=== PATIENT | male | born 1965 | race Caucasian/White ===

== ENCOUNTER 2017-02-05 15:21 | Emergency (ER) | payer BC ==
[2017-02-05] MEDS ORDERED: Sodium Chloride 0.9% 1,000 ML IV ONE (15:25)
[2017-02-05] MEDS ORDERED: Sodium Chloride 0.9% 10 ML Syringe FLUSH PRN (15:25)
[2017-02-05] MEDS ORDERED: Sodium Chloride 0.9% 2.5 ML Syringe FLUSH PRN (15:25)
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
--- NOTE | 2017-02-05 16:02 | CT ---
EXAMINATION: Non contrast CT head. Coronal and sagittal reformats. HISTORY: Pain FINDINGS: No evidence of intra axial hemorrhage, mass, midline shift, hydrocephalus or edema. There is enceph alomalacia in the right frontal lobe anteriorly along the right cerebral convexity. There is an unde rlying mild prominence of the extra-axial spaces. No hypoattenuation changes in the major vascular territories to suggest acute infarct. No abnormal intracranial calcifications are detected. No evidence of substantial vascular calcifications. Mild mucosal thickening within the maxillary sinuses and ethmoid air cells. The orbits and globes ar e symmetric. Pituitary fossa appears unremarkable. Calvarium is intact. No evidence of skull fracture. IMPRESSION: 1. 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 2. No definite acute intracranial abnormality.
--- NOTE | 2017-02-05 16:07 | CR ---
EXAMINATION: Portable chest radiograph. HISTORY: Shortness of breath. FINDINGS: The trachea is midline. The cardiomediastinal silhouette is within normal limits. Mild diffuse inter stitial prominence bilaterally, left greater than right. No focal consolidation, pleural effusion, o r pneumothorax. Osseous structures appear unremarkable. IMPRESSION: Mildly increased interstitial prominence bilaterally, the etiology is uncertain, this could be a chr onic finding.
[2017-02-05 16:25] LABS: CHLORIDE,CL 110 mmol/L (98-110); SODIUM,NA 141 mmol/L (136-146)
== END 2017-02-05 16:54 ==
LOC: MW.ED 15:21
DX: G40.909 Epilepsy, unspecified, not intractable, without status epilepticus (principal); R47.01 Aphasia; G81.94 Hemiplegia, unspecified affecting left nondominant side
CPT/HCPCS: 36415; 70450; 71010; 80053; 80305; 81001; 82550; 84443; 84484; 85025; 85610; 93005; 96360; 99285; G0480; J7040; 99291

== ENCOUNTER 2017-07-26 12:26 | Inpatient (IN) | payer BC ==
[2017-07-26] MEDS ORDERED: Sodium Chloride 0.9% 10 ML Syringe FLUSH PRN (12:40)
[2017-07-26] MEDS ORDERED: Sodium Chloride 0.9% 2.5 ML Syringe FLUSH PRN (12:40)
[2017-07-26] MEDS ORDERED: MVI, Adult with Vitamin K 10 ML, Thiamine 100 MG, Folic Acid 1 MG in Sodium Chloride 0.... IV ONE ×4 (12:40)
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
[2017-07-26] MEDS ORDERED: LORazepam 2 MG/ML MDV ONE (13:10)
[2017-07-26] MEDS ORDERED: LORazepam 2 MG/ML MDV IVPUSH ONE ×2 (13:17→14:42)
[2017-07-26 13:24] LABS: CHLORIDE,CL 100 mmol/L (98-110); SODIUM,NA 133 mmol/L (136-146)
--- NOTE | 2017-07-26 14:33 | CT ---
EXAMINATION: Non contrast CT head. Coronal and sagittal reformats. HISTORY: Pain FINDINGS: No evidence of intra or extra axial hemorrhage, mass, midline shift, hydrocephalus or edema. There i s encephalomalacia along the right frontal lobe with a prominence of the right extra-axial spaces, un changed. No hypoattenuation changes in the major vascular territories to suggest acute infarct. No abnormal i ntracranial calcifications are detected. No evidence of substantial vascular calcifications. There is mild mucosal thickening within the maxillary sinuses and ethmoid air cells, right greater th an left. Orbits and globes are symmetric. Pituitary fossa appears unremarkable. The calvarium is intact. No evidence of skull fracture. IMPRESSION: 1. Right frontal lobe cortical encephalomalacia, unchanged with a mild prominence of the overlying ex tra-axial space. 2. No evidence of an acute intracranial findings.
[2017-07-26] MEDS ORDERED: Ondansetron 4 MG Tab.DIS PO PRN (15:03)
[2017-07-26] MEDS ORDERED: LORazepam 2 MG/ML MDV IVPUSH PRN ×3 (15:07→15:29)
[2017-07-26] MEDS ORDERED: Enoxaparin 40 MG/0.4 ML Syringe SUBCUT SCH ×2 (15:15→15:30)
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
[2017-07-26] MEDS ORDERED: Sodium Chloride 0.9% with KCl 1,000 ML IV SCH ×3 (15:30→16:00)
[2017-07-26] MEDS: Famotidine 20 MG Tab PO SCH (15:50)
[2017-07-26] MEDS ORDERED: Ibuprofen 400 MG Tab PO PRN (20:37)
[2017-07-26] MEDS: Topiramate 100 MG Tab PO SCH (20:39)
[2017-07-26] MEDS: Divalproex Sodium Delayed-Release 500 MG Tab.CR PO SCH (20:39)
[2017-07-27] MEDS: Sodium Chloride 0.9% 1,000 ML IV SCH ×2 (00:21→08:29)
[2017-07-27] MEDS: Famotidine 20 MG Tab PO SCH (04:30)
[2017-07-27 05:38] LABS: CHLORIDE,CL 112 mmol/L (98-110); SODIUM,NA 141 mmol/L (136-146)
[2017-07-27] MEDS: Topiramate 100 MG Tab PO SCH (08:30)
[2017-07-27] MEDS: Divalproex Sodium Delayed-Release 500 MG Tab.CR PO SCH (08:30)
[2017-07-27] MEDS ORDERED: Thiamine 100 MG in Sodium Chloride 0.9% 50 ML IV SCH (09:00)
[2017-07-27] MEDS ORDERED: Folic Acid 1 MG Tab PO SCH (09:00)
[2017-07-27] MEDS ORDERED: Valproate Sodium 500 MG/5 ML SDV IV ONE (11:30)
--- NOTE | 2017-07-27 11:52 | PCM.DCSUM1 ---
Discharge Summary - Hospital Course Free Text/Narrative:: Admission date July 26, 2017 Discharge date July 27, 2017 Admission diagnosis: Seizure Acute alcohol intoxication Discharge diagnosis: 1. 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 Chronic alcoholism 3. Subtherapeutic Depakote level Hospital course: This is a 52-year-old male with a past history significant for tonic-clonic seizures and chronic alcoholism that was brought in by his after he was found in a hotel taking alcohol. The patient was brought to the emergency department in an obtunded state after the witnessed him having a seizure. Patient then had an episode of seizure in the emergency department as well and was then admitted to the ICU for further management. The patient was monitored for both acute seizure and signs of alcohol withdrawal. Serial CIWA scores showed single digits. He did not have a seizure overnight. The next morning when I reassessed him, patient was awake alert and oriented with no new focal deficits. The patient was given a loading dose of Depakote, and was advised to follow-up with his primary care provider who can recheck a Depakote level in 2-4 days. The patient and his were counseled on any possible signs of alcohol withdrawals such as confusion, nausea, vomiting, shakiness, headaches and was advised to seek further medical attention if the symptoms occur. Patient is ultimately discharged and advised to follow-up with the neurologist and the primary care provider. At the time of discharge, the patient had no complaints and appears to be doing well. Follow-up instructions: Patient is to follow-up with his primary care provider, to get a Depakote level rechecked. Patient is also follow-up with his neurologist who he tells me he is in [place]. - Discharge Data Discharge Date: 07/27/17 Discharge Disposition: Home, Self-Care 01 Condition: Good - Patient Instructions Diet: Regular Diet as Tolerated, No Alcoholic Beverages Driving: May Drive Today Showering/Bathing: May Shower Notify Provider of: Fever, Nausea and/or Vomiting Other/Special Instructions: shakiness, confusion, hallucinations - Discharge Plan Home Medications: Home Meds Topiramate [Topamax] 100 mg PO BID 02/05/17 [History] Divalproex Sodium [Depakote] 500 mg PO BID 07/26/17 [History] Forms: ED Department Discharge Referrals: PCP,Not In Area [Primary Care Provider] - - Discharge Summary/Plan Comment DC Time >30 min.: No Discharge Summary/Plan Comment: Admission date July 26, 2017 Discharge date July 27, 2017 Admission diagnosis: Seizure Acute alcohol intoxication Discharge diagnosis: 1. 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 Chronic alcoholism 3. Subtherapeutic Depakote level Hospital course: This is a 52-year-old male with a past history significant for tonic-clonic seizures and chronic alcoholism that was brought in by his after he was found in a hotel taking alcohol. The patient was brought to the emergency department in an obtunded state after the witnessed him having a seizure. Patient then had an episode of seizure in the emergency department as well and was then admitted to the ICU for further management. The patient was monitored for both acute seizure and signs of alcohol withdrawal. Serial CIWA scores showed single digits. He did not have a seizure overnight. The next morning when I reassessed him, patient was awake alert and oriented with no new focal deficits. The patient was given a loading dose of Depakote, and was advised to follow-up with his primary care provider who can recheck a Depakote level in 2-4 days. The patient and his were counseled on any possible signs of alcohol withdrawals such as confusion, nausea, vomiting, shakiness, headaches and was advised to seek further medical attention if the symptoms occur. Patient is ultimately discharged and advised to follow-up with the neurologist and the primary care provider. At the time of discharge, the patient had no complaints and appears to be doing well. Follow-up instructions: Patient is to follow-up with his primary care provider, to get a Depakote level rechecked. Patient is also follow-up with his neurologist who he tells me he is in [place]. - Patient Data Vitals - Most Recent: Last Vital Signs Temp 36.8 C 07/27/17 08:00 Pulse 97 07/26/17 14:47 Resp 14 07/27/17 09:00 BP 154/97 H 07/27/17 09:00 Pulse Ox 92 L 07/27/17 09:00 Weight - Most Recent: 82.7 kg I&O - Last 24 hours: Intake & Output 07/26/17 07/27/17 07/27/17 22:59 06:59 14:59 Intake Total 250 3006 100 Output Total 950 2520 Balance -700 486 100 Lab Results - Last 24 hrs: Laboratory Results - last 24 hr 07/27/17 07/27/17 Range/Units 04:51 04:51 WBC 4.78 (4.0-11.0) K/uL RBC 4.28 L (4.50-5.90) M/uL Hgb 13.7 (13.0-17.0) g/dL Hct 39.7 (38.0-50.0) % MCV 92.8 (80.0-98.0) fL MCH 32.0 (27.0-32.0) pg MCHC 34.5 (31.0-37.0) g/dL RDW Std Deviation 43.4 (28.0-62.0) fl RDW Coeff of Niranjan 13 (11.0-15.0) % Plt Count 182 (150-400) K/uL MPV 10.30 (7.40-12.00) fL Nucleated RBC % 0.0 /100WBC Nucleated RBCs # 0 K/uL Sodium 141 (136-146) mmol/L Potassium 3.9 (3.5-5.1) mmol/L Chloride 112 H (98-110) mmol/L Carbon Dioxide 21 (21-31) mmol/L BUN 12 (6.0-23.0) mg/dL Creatinine 0.8 (0.6-1.5) mg/dL Est Cr Clr Drug Dosing 111.53 mL/min Estimated GFR (MDRD) > 60.0 ml/min Glucose 89 (60-110) mg/dL Calcium 8.9 (8.8-10.8) mg/dL Total Bilirubin 1.0 (0.1-1.5) mg/dL AST 37 (5-40) IU/L ALT 31 (8-54) IU/L Alkaline Phosphatase 73 (40-150) Total Protein 6.1 (6.0-8.0) g/dL Albumin 4.0 (3.5-5.0) g/dL Globulin 2.1 (2.0-3.5) g/dL Albumin/Globulin Ratio 1.9 (1.3-2.8) Med Orders - Current: Current Medications Diphtheria/Tetanus/Acell Pertussis (Adacel) 0.5 ml IM .ONCE ONE Stop: 07/27/17 15:17 Divalproex Sodium (Depakote) 500 mg PO BID [facility] Last Admin: 07/27/17 08:30 Dose: 500 mg Enoxaparin Sodium (Lovenox) 40 mg SUBCUT Q24H [facility] Last Admin: 07/26/17 15:51 Dose: 40 mg Famotidine (Pepcid) 20 mg PO Q12H [facility] Last Admin: 07/27/17 04:30 Dose: 20 mg Folic Acid (Folic Acid) 1 mg PO DAILY [facility] Stop: 07/29/17 09:01 Last Admin: 07/27/17 08:29 Dose: 1 mg Sodium Chloride (Normal Saline) 1,000 mls @ 125 mls/hr IV ASDIRECTED [facility] Last Admin: 07/27/17 08:29 Dose: 125 mls/hr Thiamine HCl 100 mg/ Sodium (Chloride) 51 mls @ 102 mls/hr IV DAILY [facility] Last Admin: 07/27/17 08:35 Dose: 102 mls/hr Ibuprofen (Motrin) 400 mg PO Q6H PRN PRN Reason: Pain Influenza Virus Vaccine (Fluarix Quad [id number]) 60 mcg IM .ONCE ONE Stop: 07/27/17 15:31 Lorazepam (Ativan) 0 mg IVPUSH Q4H PRN; Protocol PRN Reason: Withdrawal Symptoms Lorazepam (Ativan) 1 mg IVPUSH Q1H PRN PRN Reason: Agitation Ondansetron HCl (Zofran Odt) 4 mg PO Q4H PRN PRN Reason: nausea, able to take PO Sodium Chloride (Saline Flush) 10 ml FLUSH ASDIRECTED PRN PRN Reason: Keep Vein Open Last Admin: 07/26/17 12:59 Dose: 10 ml Sodium Chloride (Saline Flush) 2.5 ml FLUSH ASDIRECTED PRN PRN Reason: Keep Vein Open Last Admin: 07/26/17 13:00 Dose: 2.5 ml Topiramate (Topamax) 100 mg PO BID [facility] Last Admin: 07/27/17 08:30 Dose: 100 mg Valproic Acid (Depacon) 1,000 mg IV NOW ONE Stop: 07/27/17 11:31 Discontinued Medications Enoxaparin Sodium (Lovenox) 40 mg SUBCUT Q24H [facility] Multivitamins/Minerals 10 ml/Thiamine HCl 100 mg/ Folic Acid 1 mg/ Sodium Chloride 1,011.2 mls @ 999 mls/hr IV ONETIME ONE Stop: 07/26/17 13:40 Last Admin: 07/26/17 12:57 Dose: 999 mls/hr Potassium Chloride/Sodium Chloride (Normal Saline With 40 Meq Kcl) 1,000 mls @ 122.549 mls/hr IV ASDIRECTED [facility] Stop: 07/26/17 23:40 Last Admin: 07/26/17 15:48 Dose: Not Given Potassium Chloride/Sodium Chloride (Normal Saline With 40 Meq Kcl) 1,000 mls @ 122.549 mls/hr IV ASDIRECTED [facility] Stop: 07/27/17 00:10 Last Admin: 07/26/17 15:50 Dose: 122.549 mls/hr Influenza Virus Vaccine (Pharmacy To Dose - Influenza Vaccine) 1 each IM ONETIME ONE Stop: 07/26/17 15:17 Lorazepam (Ativan) Confirm Administered Dose 2 mg .ROUTE .STK-MED ONE Stop: 07/26/17 13:11 Last Admin: 07/26/17 13:22 Dose: Not Given Lorazepam (Ativan) 2 mg IVPUSH ONETIME ONE Stop: 07/26/17 13:18 Last Admin: 07/26/17 13:12 Dose: 2 mg Lorazepam (Ativan) 2 mg IVPUSH ONETIME ONE Stop: 07/26/17 14:43 Last Admin: 07/26/17 14:42 Dose: 2 mg Lorazepam (Ativan) 2 mg IVPUSH Q1H PRN PRN Reason: Agitation *Q Meaningful Use (DIS) - VTE *Q VTE Criteria *Q: - Stroke *Q Stroke Criteria *Q: - AMI *Q AMI Criteria *Q:
[2017-07-27 11:57] VITALS: BP 137/81
[2017-07-27] MEDS ORDERED: Diphtheria,Pertussis(Acell),Tetanus Vaccine 0.5 ML Syringe IM ONE (15:16)
[2017-07-27] MEDS ORDERED: FLU Vacc QS 2017-18 (36mos UP)/PF 60 MCG/0.5 ML Syringe IM ONE (15:30)
== END 2017-07-27 15:30 | disposition home or self-care (01) | DRG 53 ==
LOC: MW.ED 12:26 → MW.ICU 14:23
PROVIDERS: ADMIT Family Medicine; ATTEND Family Medicine
PROC: 3E0234Z Introduction of Serum, Toxoid and Vaccine into Muscle, Percutaneous Approach (ICD-10-PCS; principal; 2017-07-27)
DX: R56.9 Unspecified convulsions (principal); G40.909 Epilepsy, unspecified, not intractable, without status epilepticus; R79.9 Abnormal finding of blood chemistry, unspecified; F10.229 Alcohol dependence with intoxication, unspecified; R47.01 Aphasia; E53.8 Deficiency of other specified B group vitamins; Z79.899 Other long term (current) drug therapy; Z23 Encounter for immunization
CPT/HCPCS: 36415; 70450; 70450-26; 80053; 80164; 80305; 82962; 85025; 85027; 90686; 90715; 96365; 96375; 96376; 99284; 99284-25; A9270-GY; G0480; J1650; J2060; J3411; J3480; J7040; J7050